=== PATIENT | male | born 1955 | race Caucasian/White ===

== ENCOUNTER 2018-06-19 15:43 | Emergency (ER) | payer OTHER ==
[~2018-06-19] VITALS: Ht 167.6 cm; Wt 60.8 kg
[2018-06-19 16:57] LABS: HEMATOCRIT 45.2 % (42.0-52.0); HEMOGLOBIN 15.1 gm/dL (14.0-18.0); MCH 30.4 pg (26.0-34.0); MCHC 33.3 g/dL (28.0-37.0); MCV 91.4 fL (80.0-100.0); MPV 9.6 fl. (7.2-11.1); NUCLEATED RBCS 0 /100WBC; PLATELET COUNT* 168 thou/uL (150-400); RBC 4.95 mil/uL (4.50-6.00); RDW-CV 13.6 % (10.5-14.5); WBC 7.8 thou/uL (4.0-11.0)
[2018-06-19 17:08] LABS: APTT 22.2 Seconds (25.0-31.3); PROTIME 10.4 Seconds (9.20-11.50)
[2018-06-19 17:26] LABS: ANION GAP 8 mmol/L (7-16); BUN 14 mg/dL (7-18); CALCIUM 8.7 mg/dL (8.5-10.1); CHLORIDE 103 mmol/L (98-107); CO2 29 mmol/L (21-32); CREATININE 0.9 mg/dL (0.6-1.3); GLUCOSE 125 mg/dL (70-99); POTASSIUM 4.5 mmol/L (3.5-5.1); SODIUM 140 mmol/L (136-145); TROPONIN-I LEVEL <0.06 ng/mL (<0.06)
[2018-06-19 17:32] LABS: ALBUMIN 4.1 g/dL (3.4-5.0); ALKALINE PHOSPHATASE 91 U/L (46-116); CK-MB MASS 1.3 ng/mL (<0.5-3.6); NT-PRO BRAIN NAT PEPTIDE 68 pg/mL (<300); SGOT 27 U/L (15-37); SGPT 21 U/L (30-65); TOTAL BILIRUBIN 0.3 mg/dL (<0.1-1.0); TOTAL PROTEIN 6.7 g/dL (6.4-8.2)
[2018-06-19 17:40] LABS: ABSOLUTE LYMPHOCYTES 0.2 thou/uL (0.8-5.3); ABSOLUTE MONOCYTES 0.5 thou/uL (0.0-1.2); ABSOLUTE NEUTROPHILS 7.1 thou/uL (1.6-8.1)
[2018-06-19 17:47] LABS: PLATELET ESTIMATE ADEQUATE
[2018-06-19 18:32] VITALS: BP 151/94
--- NOTE | 2018-06-20 15:04 | EKG ---
[place] [address] ELECTROCARDIOGRAM REPORT Name: KIRILL TORO Room: [facility]#: [id number] Admission: 06/19/18 Attend Phys: Discharge: 06/19/18 Date of : 53 Report #: [id number] THIS REPORT FOR: //name// [facility] ED Test Date: 2018-06-19 Test Time: 15:56:50 Pat Name: KIRILL TORO Department: Room: Gender: M Vp Analysis: [place] KNIGHT : 1955 Requested By: Wang Richardson Order Number: [id number] MD: Vicente Haque Measurements Intervals [place] Rate: 54 P: 76 CT: 134 QRS: -32 QRSD: 90 T: 48 QT: 416 QTc: 395 Interpretive Statements Sinus rhythm Left axis deviation Abnormal R-wave progression, early transition Borderline T abnormalities, anterior leads No previous ECG available for comparison Electronically Signed On 06-20-2018 15:04:16 CDT by Vicente Haque [email or web address] <ELECTRONICALLY SIGNED> By: Vicente Haque MD, [facility] 06/20/18 1504 [id number] Vicente Haque MD, FACC /EPI
== END 2018-06-19 18:36 | disposition short-term general hospital (02) ==
LOC: M.ERS 15:43
PROVIDERS: Family Medicine
DX: G93.89 Other specified disorders of brain (principal); R41.82 Altered mental status, unspecified